=== PATIENT | female | born 1950 | race Caucasian/White ===

== ENCOUNTER 2023-11-06 15:03 | Emergency (ER) | payer MEDICARE ==
[~2023-11-06] VITALS: Ht 157.5 cm; Wt 64.5 kg
[2023-11-06] MEDS ORDERED: COZAAR100 MG PO (15:10)
[2023-11-06 15:23] LABS: BASOPHILS 0.4 % (0-2); EOSINOPHILS 1.3 % (0-6); HEMATOCRIT 33.2 % (35.0-50.0); HEMOGLOBIN 11.4 g/dL (12.0-18.0); LYMPHOCYTES 7.5 % (24-44); MCH 31.5 (27-36); MCHC 34.5 g/dl (30-36); MCV 91.3 fl (81-99); MONOCYTES 5.7 % (0-12); NEUTROPHILS 85.1 % (39-80); PLATELET COUNT 261 K/uL (140-440); RBC 3.63 M/ul (4.3-5.7)
[2023-11-06 15:28] LABS: PARTIAL THROMBOPLASTIN TIME 27.4 Sec (22.9-41.3)
[2023-11-06 15:29] LABS: INR 0.98 (0.80-1.30); PROTIME 12.3 Sec (11.2-14.2)
[2023-11-06] MEDS ORDERED: SODIUM CHLORIDE 0.9% 1,000 ML IV PRN (15:30)
[2023-11-06 15:41] LABS: ALBUMIN 3.3 g/dL (3.4-5.0); ALBUMIN/GLOBULIN RATIO 1.03 (1.1-2.4); ALCOHOL, MEDICAL <3 ng/dL (<3); ALKALINE PHOSPHATASE 80 U/L (46-116); ALT (SGPT) 27 U/L (14-59); ANION GAP 11.5 (7-21); AST (SGOT) 23 U/L (15-37); BILIRUBIN, TOTAL 0.4 ng/dL (0.2-1.0); CALCIUM 8.7 mg/dL (8.5-10.1); CARBON DIOXIDE 28 mmol/L (21-32); CHLORIDE 95 mmol/L (98-107); CREATININE, SERUM 0.98 mg/dL (0.55-1.02); GLOMERULAR FILTRATION RATE,EST 61 mL/min (>60); MAGNESIUM 1.8 mg/dL (1.8-2.4); POTASSIUM 3.5 mmol/L (3.5-5.1); PROTEIN, TOTAL 6.5 g/dL (6.4-8.2); UREA NITROGEN 15 mg/dL (7-18)
[2023-11-06 16:59] LABS: BILIRUBIN, URINE NEGATIVE (negative); BLOOD/HGB, URINE NEGATIVE (Negative); KETONE, URINE TRACE (Negative); LEUK ESTERASE, URINE SMALL (negative); NITRITE, URINE POSITIVE (negative); PH, URINE 6.5 (5-7)
[2023-11-06 17:04] LABS: EPITHELIAL CELLS, URINE SQUAMOUS 1+ /lpf (0-1+); RED BLOOD CELLS, URINE 0-1 /hpf (0-5); WHITE BLOOD CELLS, URINE 21-40 /HPF (0-5)
[2023-11-06 17:05] LABS: BACTERIA, URINE 1+ /hpf (negative); CASTS, URINE NONE SEEN \\lpf; COLLECTION TYPE, URINE CLEAN CATCH; CRYSTALS, URINE NONE SEEN (0-1+); REFLEX CULTURE, URINE Yes (No)
[2023-11-06] MEDS ORDERED: CEFDINIR300 MG PO (17:33)
[2023-11-06 17:52] VITALS: BP 139/82
--- NOTE | 2023-11-06 21:11 | EKG ---
[facility] [address] [facility] [place] [place] [id number] Signed Normal sinus rhythm Possible Left atrial enlargement Borderline ECG No previous ECGs available Confirmed by Ayaka Jackson MD ([id number]) on 11/06/2023 9:11:00 PM Electronically Signed By: AYAKA JACKSON MD 11/06/232110 PATIENT NAME: CORDELIA COPPOLA Electrocardiogram DATE OF : 46 PHYSICIAN: AYAKA JACKSON MD REPORT #: [id number] REPORT IS CONFIDENTIAL AND NOT TO BE RELEASED WITHOUT AUTHORIZATION
== END 2023-11-06 17:53 | disposition home or self-care (01) ==
LOC: ED 15:03
PROVIDERS: Emergency Medicine
DX: R55 Syncope and collapse (principal); N39.0 Urinary tract infection, site not specified; I10 Essential (primary) hypertension; Z88.8 Allergy status to other drugs, medicaments and biological substances; Z88.1 Allergy status to other antibiotic agents; Z79.899 Other long term (current) drug therapy
CPT/HCPCS: 36415; 70450; 80053; 81001; 83735; 83880; 84484; 85025; 85610; 85730; 87088; 93005; 93010; 99284; G0480; J7030